=== PATIENT | male | born 1975 | race Caucasian/White ===

== ENCOUNTER 2023-07-04 14:54 | Emergency (ER) | payer MEDICAID ==
[~2023-07-04] VITALS: Ht 182.9 cm; Wt 197.7 kg
[2023-07-04 15:19] VITALS: TEMP 98
[2023-07-04] MEDS ORDERED: ONDANSETRON HCL 4 MG TABLET PO ONE (16:00)
[2023-07-04] MEDS ORDERED: IBUPROFEN 600 MG TABLET PO ONE (16:00)
[2023-07-04] MEDS ORDERED: BACITRACIN 0.9 GM PACKET OINTMENT TP ONE (16:00)
[2023-07-04] MEDS ORDERED: HYDROCODONE/ACETAMINOPHEN 5-325 MG TABLET PO ONE (16:00)
[2023-07-04] MEDS ORDERED: LIDOCAINE 1% 10 ML VIAL SQ ONE (16:00)
[2023-07-04 18:39] VITALS: BP 153/79; PULSE 67; RESP 18
[2023-07-04] MEDS ORDERED: METH-812 PO (19:48)
[2023-07-04] MEDS ORDERED: HYDR-4072 PO (19:48)
[2023-07-04] MEDS ORDERED: IBUP-1554 PO (19:48)
[2023-07-06] MEDS ORDERED: METH-812 PO (14:04)
[2023-07-06] MEDS ORDERED: IBUP-1554 PO (14:04)
[2023-07-06] MEDS ORDERED: HYDR-4072 PO (14:04)
== END 2023-07-04 20:23 | disposition home or self-care (01) ==
LOC: EMS 14:54
DX: S33.9XXA Sprain of unspecified parts of lumbar spine and pelvis, initial encounter (principal); S81.812A Laceration without foreign body, left lower leg, initial encounter; S30.0XXA Contusion of lower back and pelvis, initial encounter; I10 Essential (primary) hypertension; F17.210 Nicotine dependence, cigarettes, uncomplicated; Z91.040 Latex allergy status; Z88.8 Allergy status to other drugs, medicaments and biological substances; W26.8XXA Contact with other sharp object(s), not elsewhere classified, initial encounter; Y93.89 Activity, other specified; Y92.89 Other specified places as the place of occurrence of the external cause; Y99.8 Other external cause status
CPT/HCPCS: 99284; 72040; 72070; 72100; 12002; Q0162; J3490